=== PATIENT | female | born 1970 | race Caucasian/White ===

== ENCOUNTER → 2020-07-27 | Outpatient (CLI) | payer BC, OTHER | LOC: NM 11:50 | DX: R10.11 Right upper quadrant pain (principal); R94.5 Abnormal results of liver function studies; R93.2 Abnormal findings on diagnostic imaging of liver and biliary tract | CPT/HCPCS: 78226; A9537 ==

== ENCOUNTER → 2021-06-06 | Outpatient (CLI) | payer BC | LOC: KOH-I 09:27 | DX: M25.512 Pain in left shoulder (principal); M75.52 Bursitis of left shoulder | CPT/HCPCS: 73221 ==